=== PATIENT | female | born 2000 | race Caucasian/White ===

== ENCOUNTER 2022-09-02 16:36 | Emergency (ER) | payer BC, SELFPAY ==
[2022-09-02 16:40] VITALS: BP 155/77; PULSE 85; RESP 16; TEMP 37.1; O2SAT 97; BMI 30.7
[2022-09-02 17:09] LABS: Strep Grp A by PCR Rapid Negative (Negative)
[2022-09-02 19:20] VITALS: BP 139/64; PULSE 81; RESP 16; TEMP 36.7; O2SAT 100
--- NOTE | 2022-09-02 19:29 | ED_ITS ---
HPI - General Adult General Chief complaint: Upper Respiratory Symptoms Stated complaint: sore throat T-5, meds not helping Time Seen by Provider: 09/02/22 17:30 Source: patient Mode of arrival: Family Vehicle History of Present Illness HPI narrative: Patient is a 22-year-old female who is here for evaluation of approximately 5 days of a sore throat. She also states that she feels like she is having fullness in her ears. Is having problems swallowing because of the pain. No problems breathing. She is finishing a course of steroids that was prescribed to her from an ENT doctor back where she lives. She had a telemedicine visit w ith this provider. She states that the 1st day of taking the steroids did seem to help but after that it has not. No rashes. Is having subjective fevers. Related Data Allergies Allergy/AdvReac Type Severity Reaction Status Date / Time No Known Drug Allergies Allergy Verified 09/02/22 16:51 Review of Systems Constitutional Constitutional: Reports system reviewed and no additional complaints, except as documented ENT Ears, Nose, Mouth, and Throat: Reports system reviewed and no additional complaints, except as documented Respiratory Respiratory: Reports system reviewed and no additional complaints, except as documented Neurologic Neurologic: Reports system reviewed and no additional complaints, except as documented Patient History Social History Smoking Status: Never smoker Smoking Status: Never smoker alcohol intake frequency: 0-2 drinks per day Substance Use Type: does not use Exam Initial Vital Signs Initial Vital Signs: Vital Signs Temperature 98.7 F 09/02/22 16:40 Pulse Rate 85 09/02/22 16:40 Respiratory Rate 16 09/02/22 16:40 Blood Pressure 155/77 H 09/02/22 16:40 Pulse Oximetry 97 09/02/22 16:40 Oxygen Delivery Method Room Air 09/02/22 16:40 HENKY Head: normal to inspection and normocephalic Ears: external ears normal Face and sinus: normal facial exam Mouth: oral mucosae normal, lip normal and moist mucous membranes Throat: posterior oropharynx normal, uvula midline and no uvular edema Neck Lymphatic: lymphadenopathy (Bilateral posterior cervical) Resp Effort & Inspection: normal respiratory effort Skin General: no rashes or lesions noted Neuro General: patient alert, patient awake and moves all extremities Extrem General: normal to inspection and capillary refill normal Course Orders Ordered: ED Orders 09/02/22 16:53 Strep Grp A by PCR Rapid Stat Throat Culture Stat 09/02/22 19:37 Monotest Stat Vital Signs Vital signs: Vital Signs - 8 hr 09/02/22 16:40 09/02/22 19:20 Temperature 98.7 F 98.1 F Pulse Rate 85 81 Respiratory Rate 16 16 Blood Pressure 155/77 H 139/64 Pulse Oximetry 97 100 Oxygen Delivery Method Room Air Room Air Medical Decision Making Lab Data Lab results reviewed: Yes I reviewed the patient's lab results. Labs: Lab Results 09/02/22 09/02/22 Range/Units 16:53 19:37 Monoscreen Positive H (Negative) Group A Strep (PCR) Negative (Negative) MDM Narrative Medical decision making narrative: A rapid strep was negative. Her mono test is positive which is most likely the cause of her symptoms. She does have a throat culture pending. No airway compromise. She is finishing a course of steroids. There was no indication for radiologic studies. No indication for antibiotics. No indication to prolonged the course of the steroids. Had a discussion with her and family regarding oral medications to try to help with her sore throat. We did discuss mono hand avoiding activities where she could potentially hit her abdomen. There is no indication of any splenomegaly today. She was given return precautions. She expressed understanding and agreement. Discharge Plan Departure Patient Disposition: Home Clinical Impression: Mononucleosis, Pharyngitis Instructions: Sore Throat, DI for Mononucleosis-Adult Activity Restrictions/Additional Instructions: With mononucleosis you can expect to be fatigued and potentially have fevers and generally not feel very well for up to 4 weeks after the onset. There is no indication to do any antibiotics. Unfortunately there isn't a good option to take your sore throat way. You can take Tylenol and/or ibuprofen for any fevers or discomfort. You can also use [id number] sore throat remedies such as Cepacol drops or Chloraseptic spray. I do recommend that you follow-up with your primary doctor when you return home. Referrals: Miscellaneous,[facility] [Primary Care Provider] - Stand Alone Forms: Patient Portal/API
[2022-09-02 19:53] LABS: Monotest Positive (Negative)
== END 2022-09-02 20:11 | disposition home or self-care (01) ==
PROVIDERS: Emergency Medicine; Emergency Provider Emergency Medicine
DX: B27.90 Infectious mononucleosis, unspecified without complication (principal); J02.9 Acute pharyngitis, unspecified
CPT/HCPCS: 36415; 86318; 87070; 87651; 99282; 99283